=== PATIENT | male | born 1985 | race Caucasian/White ===

== ENCOUNTER → 2021-02-24 | Outpatient (CLI) | payer OTHER ==
--- NOTE | 2021-02-24 20:35 | RAD ---
Exam: Chest 2 views INDICATION: Cough, congestion TECHNIQUE: Frontal and lateral views of the chest Comparisons: None FINDINGS: The cardiomediastinal silhouette and pulmonary vessels are within normal limits. The lung and pleural spaces are clear. IMPRESSION: No acute cardiopulmonary process. Electronically signed by: Edward Marsh MD (02/24/2021 8:33 PM) COURTNEY
== END ==
LOC: RAD 19:58
PROVIDERS: ATTEND Nurse Practitioner Family
DX: R05.9 Cough, unspecified (principal); R09.81 Nasal congestion; Z68.35 Body mass index [BMI] 35.0-35.9, adult
CPT/HCPCS: 71046